=== PATIENT | female | born 1990 | race Hispanic/Latino ===

== ENCOUNTER 2024-12-04 16:49 | Emergency (ER) | payer SELFPAY ==
--- NOTE | ~2024-12-04 | XR_ITS ---
CHEST RADIOGRAPH, PA AND LATERAL CLINICAL HISTORY: chest pain . COMPARISON: 01/02/2024 TECHNIQUE: PA and lateral views of the chest. FINDINGS The cardiomediastinal silhouette is unremarkable. The lungs are clear. Visualized osseous structures and soft tissues are unremarkable. IMPRESSION: No focal infiltrate or effusion. Reviewed, dictated and finalized at location A. DING [employer] TEACHER
--- NOTE | 2024-12-04 17:05 | ECG_ITS ---
Test Date: 2024-12-04 17:30:32 Measurements Intervals [place] Rate: 95 P: 50 WV: 192 QRS: 17 QRSD: 88 T: 47 QT: 342 QTc: 431 Interpretive Statements SINUS RHYTHM POSSIBLE LEFT ATRIAL ENLARGEMENT BASELINE ARTIFACT- I, II, III, AVR, AVL, V1-V2 BORDERLINE ECG No previous ECG available for comparison Electronically Signed On 12-04-2024 19:00:27 HOG TRADER by Donato Alva D.O.
[2024-12-04 17:41] LABS: Basophils Absolute Auto 0.1 K/mm3 (0.0-0.1); Basophils Percent Auto 0.7 % (0.2-1.2); Eosinophils Absolute Auto 0.7 K/mm3 (0-0.3); Eosinophils Percent Auto 7.1 % (0-4.4); Hematocrit 38.6 % (37.0-47.0); Hemoglobin 12.7 g/dL (12.0-15.0); Immature Granulocyte Absolute 0.03 K/mm3 (0.00-0.031); Immature Granulocyte Percent A 0.3 % (0-0.5); Lymphocytes Absolute Auto 3.39 K/mm3 (0.9-3.2); Lymphocytes Percent Auto 34.8 % (18.3-44.2); Mean Corpuscular HGB Conc 32.9 g/dl (32-36); Mean Corpuscular Hemoglobin 28.9 pg (26-34); Mean Corpuscular Volume 87.7 fl (80-100); Mean Platelet Volume 10.3 fl (7.4-10.4); Monocytes Absolute Auto 0.7 K/mm3 (0.1-0.6); Monocytes Percent Auto 7.2 % (2.6-8.5); Neutrophils Absolute Auto 4.9 K/mm3 (1.3-6.7); Neutrophils Percent Auto 49.9 % (45.5-73.1); Platelet Count Result 490 k/mm3 (150-375); Red Cell Distribution Width 13.1 % (11.5-14.5); White Blood Count 9.8 K/mm3 (4.5-10.0)
[2024-12-04 17:51] LABS: Alanine Aminotransferase 17 U/L (6-35); Albumin Level 4.7 g/dL (3.5-5.1); Alkaline Phosphatase 67 U/L (38-126); Anion Gap 11 mmol/L (4-12); Aspartate Amino Transferase 30 U/L (14-36); Bilirubin,Total 0.4 mg/dL (0.2-1.3); Blood Urea Nitrogen 7 mg/dL (7-17); Calcium 9.1 mg/dL (8.4-10.2); Carbon Dioxide 25 mmol/L (22-30); Chloride 104 mmol/L (98-107); Estimated Glomerular Filt Rate > 60; Glucose 93 mg/dL (65-110); Lipase 237 U/L (23-300); Potassium 3.7 mmol/L (3.4-5.0); Sodium 140 mmol/L (137-145)
[2024-12-04 17:55] LABS: Prothrombin Time 13.5 Seconds (11.1-14.7)
--- NOTE | 2024-12-04 17:55 | ED_ITS ---
HPI - General Adult General Chief complaint: Chest Pain <Maura Thompson, HEATING AND AIR CONDITIONING MECHANIC - Last Filed: 12/04/24 18:03> Stated complaint: chest pain x1 hour <Maura Arrington February, HEATING AND AIR CONDITIONING MECHANIC - Last Filed: 12/04/24 18:03> Time Seen by Provider: 12/04/24 17:56 <Maura Arrington February, HEATING AND AIR CONDITIONING MECHANIC - Last Filed: 12/04/24 18:03> Focused HPI: Through the manager beverage Nidia Hummel is a 34 y/o female who presents with reports of having mid chest burning constantly since Sunday. She states that after she eats she starts to feel the burning and she vomits. She states she has vomited about 4-5 times since Sunday. She states that she takes omeprazole and malox but it only helps a little. She denies any chest pain or pain at this time but states that she feels increased air in her abdomen, Abdomen is soft/ bowel sounds present. GENERAL: Well-appearing, well-nourished, and in no acute distress. HEAD: Normocephalic, atraumatic. CHEST: Clear to auscultation. ?No respiratory distress. HEART: Regular rate and rhythm.? NEURO: ?Alert and oriented x3. Patient screened in triage and initial orders placed.? ?Additional care and disposition to be based upon?diagnostic testing and treatment. <Maura Arrington February, HEATING AND AIR CONDITIONING MECHANIC - Last Filed: 12/04/24 18:03> History of Present Illness HPI narrative: Agree with the HPI above, perform my own crane service technician directed physical exam and history taking. Patient has not tried any antiemetics such as Zofran, is able tolerate p.o. intake, has not seen a drug safety assistant and only takes the medications including Maalox and Protonix as needed instead of as scheduled on the prescription. <Smith Meyer MD - Last Filed: 12/04/24 22:36> Related Data Allergies/adverse reactions: Allergies Allergy/AdvReac Type Severity Reaction Status Date / Time No Known Allergies Allergy Verified 12/04/24 19:28 <Maura Thompson, HEATING AND AIR CONDITIONING MECHANIC - Last Filed: 12/04/24 18:03> Review of Systems 2 Review of Systems: As reviewed above in HPI <Smith Meyer MD - Last Filed: 12/04/24 22:36> Exam 2 Narrative: GENERAL: [Well-appearing, well-nourished, and in no acute distress.] HEAD: [Normocephalic, atraumatic.] EYES: [PERRLA and EOMI.] ENT: Nares clear, no rhinorrhea or epistaxis. Mucous membranes moist. NECK: Supple. CHEST: [Clear to auscultation. No respiratory distress.] HEART: [Regular rate and rhythm]. No murmur heard. [Normal peripheral pulses.] ABDOMEN: [Soft, nondistended], [nontender], [No rigidity or guarding] EXTREMITIES: Normal range of motion. [No edema.] SKIN: Warm, dry, no rash. NEURO: [No focal deficits]. Alert and oriented [x3.] PSYCH: [Normal mood and affect.] <Smith Meyer MD - Last Filed: 12/04/24 22:36> Medical Decision Making MDM Narrative Medical decision making narrative: 34-year-old otherwise healthy appearing female presenting to the emergency room with chief complaint of epigastric burning sensation in the back of her throat and sour taste in her mouth. She has a history of reflux and GERD and prescribed omeprazole and Maalox by her PCP recently. These medications have been helping her but she only takes them as needed instead of on a daily basis as she was instructed to. Patient has a benign physical exam, cardiac workup was ordered given her complaints of chest discomfort in the epigastrium. Will provide her fluid bolus and Zofran as well as famotidine. Suspicion presently is for symptomatic GERD, gastritis, esophagitis, less likely ACS or cholecystitis or cholelithiasis, pancreatitis. Workup shows no leukocytosis or anemia. Negative troponin x2, negative lipase. Electrolytes within normal limits. Normal kidney and liver function. Patient felt improved after symptomatic treatment here in the ED. EKG was nonischemic, chest x-ray without any concerns. Patient is safe and stable for discharge home with GI follow-up instructions. <Smith Meyer MD - Last Filed: 12/04/24 22:36> Medical Records Medical records reviewed: Yes I reviewed the external patient's medical records. <Smith Meyer MD - Last Filed: 12/04/24 22:36> Lab Data Lab results reviewed: Yes I reviewed the patient's lab results. <Smith Meyer MD - Last Filed: 12/04/24 22:36> Result diagrams: 12/04/24 17:35 12/04/24 17:35 <Maura Thompson APRN - Last Filed: 12/04/24 18:03> Labs: Lab Results 12/04/24 12/04/24 Range/Units 17:35 20:43 WBC 9.8 (4.5-10.0) K/mm3 RBC 4.40 (4.2-5.4) M/mm3 Hgb 12.7 (12.0-15.0) g/dL Hct 38.6 (37.0-47.0) % MCV 87.7 (80-100) fl MCH 28.9 (26-34) pg MCHC 32.9 (32-36) g/dl RDW 13.1 (11.5-14.5) % Plt Count 490 H (150-375) k/mm3 MPV 10.3 (7.4-10.4) fl Immature Gran % (Auto) 0.3 (0-0.5) % Neut % (Auto) 49.9 (45.5-73.1) % Lymph % (Auto) 34.8 (18.3-44.2) % Storey % (Auto) 7.2 (2.6-8.5) % Eos % (Auto) 7.1 H (0-4.4) % Baso % (Auto) 0.7 (0.2-1.2) % Lymph # (Auto) 3.39 H (0.9-3.2) K/mm3 Storey # (Auto) 0.7 H (0.1-0.6) K/mm3 Eos # (Auto) 0.7 H (0-0.3) K/mm3 Baso # (Auto) 0.1 (0.0-0.1) K/mm3 Abs Immat Gran (auto) 0.03 (0.00-0.031) K/mm3 Absolute Neuts (auto) 4.9 (1.3-6.7) K/mm3 Absolute Nucleated RBC 0.000 (0.0-0.012) K/mm3 Nucleated RBC % 0.0 (0.0-0.2) % PT 13.5 (11.1-14.7) Seconds INR 1.0 APTT 26.5 (22.3-36.8) Seconds Sodium 140 (137-145) mmol/L Potassium 3.7 (3.4-5.0) mmol/L Chloride 104 (98-107) mmol/L Carbon Dioxide 25 (22-30) mmol/L Anion Gap 11 (4-12) mmol/L BUN 7 (7-17) mg/dL Creatinine 0.41 L (0.7-1.0) mg/dL Estim Creat Clear Calc Not Reportable Estimated GFR > 60 (59 - ) Glucose 93 (65-110) mg/dL Calcium 9.1 (8.4-10.2) mg/dL Total Bilirubin 0.4 (0.2-1.3) mg/dL AST 30 (14-36) U/L ALT 17 (6-35) U/L Alkaline Phosphatase 67 (38-126) U/L Troponin I < 0.012 < 0.012 (0.000-0.034) ng/mL Total Protein 8.0 (6.3-8.2) g/dL Albumin 4.7 (3.5-5.1) g/dL Lipase 237 (23-300) U/L <Maura Thompson, HEATING AND AIR CONDITIONING MECHANIC - Last Filed: 12/04/24 18:03> Lab Results 12/04/24 12/04/24 Range/Units 17:35 20:43 WBC 9.8 (4.5-10.0) K/mm3 RBC 4.40 (4.2-5.4) M/mm3 Hgb 12.7 (12.0-15.0) g/dL Hct 38.6 (37.0-47.0) % MCV 87.7 (80-100) fl MCH 28.9 (26-34) pg MCHC 32.9 (32-36) g/dl RDW 13.1 (11.5-14.5) % Plt Count 490 H (150-375) k/mm3 MPV 10.3 (7.4-10.4) fl Immature Gran % (Auto) 0.3 (0-0.5) % Neut % (Auto) 49.9 (45.5-73.1) % Lymph % (Auto) 34.8 (18.3-44.2) % Storey % (Auto) 7.2 (2.6-8.5) % Eos % (Auto) 7.1 H (0-4.4) % Baso % (Auto) 0.7 (0.2-1.2) % Lymph # (Auto) 3.39 H (0.9-3.2) K/mm3 Storey # (Auto) 0.7 H (0.1-0.6) K/mm3 Eos # (Auto) 0.7 H (0-0.3) K/mm3 Baso # (Auto) 0.1 (0.0-0.1) K/mm3 Abs Immat Gran (auto) 0.03 (0.00-0.031) K/mm3 Absolute Neuts (auto) 4.9 (1.3-6.7) K/mm3 Absolute Nucleated RBC 0.000 (0.0-0.012) K/mm3 Nucleated RBC % 0.0 (0.0-0.2) % PT 13.5 (11.1-14.7) Seconds INR 1.0 APTT 26.5 (22.3-36.8) Seconds Sodium 140 (137-145) mmol/L Potassium 3.7 (3.4-5.0) mmol/L Chloride 104 (98-107) mmol/L Carbon Dioxide 25 (22-30) mmol/L Anion Gap 11 (4-12) mmol/L BUN 7 (7-17) mg/dL Creatinine 0.41 L (0.7-1.0) mg/dL Estim Creat Clear Calc Not Reportable Estimated GFR > 60 (59 - ) Glucose 93 (65-110) mg/dL Calcium 9.1 (8.4-10.2) mg/dL Total Bilirubin 0.4 (0.2-1.3) mg/dL AST 30 (14-36) U/L ALT 17 (6-35) U/L Alkaline Phosphatase 67 (38-126) U/L Troponin I < 0.012 < 0.012 (0.000-0.034) ng/mL Total Protein 8.0 (6.3-8.2) g/dL Albumin 4.7 (3.5-5.1) g/dL Lipase 237 (23-300) U/L <Smith Meyer MD - Last Filed: 12/04/24 22:36> Imaging Data Attestation: I personally reviewed and interpreted this imaging study as follows: < Smith Meyer MD - Last Filed: 12/04/24 22:36> My impression: Impressions Chest X-Ray 12/04/24 18:15 IMPRESSION: No focal infiltrate or effusion. <Smith Meyer MD - Last Filed: 12/04/24 22:36> ECG Data EKG #1: Attestation: I personally reviewed and interpreted this ECG as follows: < Smith Meyer MD - Last Filed: 12/04/24 22:36> ECG completion date: 12/04/24 <Smith Meyer MD - Last Filed: 12/04/24 22:36> ECG completion time: 20:36 <Smith Meyer MD - Last Filed: 12/04/24 22:36> Prior ECG tracings: available for review <Smith Meyer MD - Last Filed: 12/04/24 22:36> Interpretation: Sinus rhythm without any ST segment elevations, depressions or inversions. Regular rate rhythm and axis, normal QTC 446, QRS interval 91, SD interval 183. No interval change compared to prior, overall normal sinus rhythm. <Smith Meyer MD - Last Filed: 12/04/24 22:36> Discharge Plan Discharge Clinical Impression: Chest pain, Chest pain due to GERD, Acid reflux <Maura Thompson APRN - Last Filed: 12/04/24 18:03> Patient Disposition: Home, Self-Care <Maura Thompson APRN - Last Filed: 12/04/24 18:03> Condition: Stable <Maura Thompson APRN - Last Filed: 12/04/24 18:03> Instructions: Antibiotic Form, Chest Pain (ED), Diet for Stomach Ulcers and Gastritis (ED), GERD (Gastroesophageal Reflux Disease) (DC) <Maura Thompson APRN - Last Filed: 12/04/24 18:03> Additional Instructions: Follow-up with gastroenterology in your primary care provider. Return with any new or worsening concerns, take your Maalox every 6 hours for burning epigastric and discomfort, indigestion, take your Protonix every night and do not miss any doses. <Maura Thompson APRN - Last Filed: 12/04/24 18:03> Patient Language: Maltese <Maura Thompson HEATING AND AIR CONDITIONING MECHANIC - Last Filed: 12/04/24 18:03> Prescriptions: New ondansetron 4 mg tablet,disintegrating 4 mg PO Q8H PRN (Reason: nausea and vomiting) Qty: 10 0RF pantoprazole [Protonix] 40 mg tablet,delayed release (DR/EC) 40 mg PO HS 28 Days Qty: 28 0RF alum-mag hydroxide-simeth [Maalox Advanced] 200-200-20 mg/5 mL suspension 15 ml PO QID PRN (Reason: indigestion) Qty: 3000 0RF Rx Instructions: administer between meals and at bedtime <Maura Thompson APRN - Last Filed: 12/04/24 18:03> Follow-up/Referrals: PHYSICIAN NOT ON STAFF,NONSTAFF [Primary Care Provider] - <Maura Thompson APRN - Last Filed: 12/04/24 18:03> Time of Disposition: 22:36 <Maura Thompson APRN - Last Filed: 12/04/24 18:03> 22:36 <Smith Meyer MD - Last Filed: 12/04/24 22:36>
[2024-12-04 17:57] LABS: Partial Thromboplastin Time 26.5 Seconds (22.3-36.8)
[2024-12-04 18:03] LABS: Troponin I < 0.012 ng/mL (0.000-0.034)
--- NOTE | 2024-12-04 20:31 | ECG_ITS ---
Test Date: 2024-12-04 20:36:49 Measurements Intervals [place] Rate: 94 P: 51 ID: [id number] QRS: 16 QRSD: 91 T: 50 QT: 357 QTc: 446 Interpretive Statements SINUS RHYTHM POSSIBLE LEFT ATRIAL ENLARGEMENT BASELINE ARTIFACT- I, III, AVR, AVL BORDERLINE ECG Compared to ECG 12/04/2024 17:30:32 No significant changes Electronically Signed On 12-05-2024 06:53:03 MANAGER CCU by Donato Alva D.O.
[2024-12-04 21:12] LABS: Troponin I < 0.012 ng/mL (0.000-0.034)
[2024-12-04] MEDS: LACTATED RINGERS 1,000 ML 999 ML IV CONT (22:48)
[2024-12-04] MEDS: ONDANSETRON INJ 4 MG/2 ML VIAL IV PUSH (22:48)
--- OUTSIDE RECORDS SUMMARY | 2024-12-04 22:59 | XMS_ITS | Clinical Summary ---
Author Organization [facility] Address [address] [place] [id number] Care Team Providers Care Vice President Corporate Communications Name Role Phone No, Physician Primary Care Provider [phone] Allergies No known active allergies Medications ibuprofen (ADVIL,MOTRIN) 800 mg tablet Take 1 tablet (800 mg total) by mouth 3 (three) times a day 21 tablet 06/25/2024 Active bisoprolol (ZEBETA) 10 mg tablet Take 1 tablet (10 mg total) by mouth daily Active Encounters Date Type Department Care Team Description 12/01/2024 4:09 PM STEEL FITTER - 12/01/2024 10:24 PM STEEL FITTER Emergency [facility] Emergency Department [address] [place] [phone] Discharge Disposition: Left without being seen from Last 3 Months Medical History Medical History Date Comments Dissociated vertical deviation Social History Tobacco Use Types Packs/Day Years Used Date Smoking Tobacco: Never Assessed Personal Safety Answer Date Recorded Have you ever been in or are you currently in a harmful physical or emotional relationship or is someone making you feel afraid or unsafe? Denies 12/01/2024 Comments No Sex and Gender Information Value Date Recorded Sex Assigned at Not on file Legal Sex Female 9:33 PM CDT Gender Identity Not on file Sexual Orientation Not on file Obstetrics History Last Filed Vital Signs Vital Sign Reading Time Taken Comments Blood Pressure 139/75 12/01/2024 10:59 AM STEEL FITTER Pulse 95 12/01/2024 10:59 AM STEEL FITTER Temperature 37.7 C (99.9 F) 12/01/2024 10:59 AM STEEL FITTER Respiratory Rate 18 12/01/2024 10:59 AM STEEL FITTER Oxygen Saturation 99% 12/01/2024 10:59 AM STEEL FITTER Inhaled Oxygen Concentration - - Weight 97.5 kg (215 lb) 12/01/2024 10:59 AM STEEL FITTER Height 157.5 cm (5' 2 ) 12/01/2024 10:59 AM STEEL FITTER Body Mass Index 39.32 12/01/2024 10:59 AM STEEL FITTER Plan of Treatment Health Maintenance Due Date Last Done Comments Cervical Cancer Screening 1988 Depression Screening 1988 Hepatitis C Screening 1988 DTaP/Tdap/Td Vaccine (1 - Tdap) 1999 Varicella Vaccines (1 of 2 - 13+ 2-dose series) 2001 Hepatitis B Screening 2006 Regular Well Visit/Exam 18-64 2006 Influenza Vaccine (#1) 2024 HPV Vaccines Aged Out No longer eligi ble based on patient's age to complete this topic Pneumococcal vaccine <65 Aged Out No longer eligible based on patient's age to complete this topic Procedures Procedure Name Priority Date/Time Associated Diagnosis Comments POCT HCG, URINE Routine 12/01/2024 1:32 PM STEEL FITTER URINALYSIS AND REFLEX TO MICROSCOPIC AND CULTURE STAT 12/01/2024 1:26 PM STEEL FITTER from Last 3 Months Results * POCT hCG, urine (12/01/2024 1:32 PM STEEL FITTER) HCG, ur, POC Negative Negative Lot Number [id number] QC Backgroud Clear Acceptable QC Control Line Acceptable Urine 12/01/2024 1:32 PM STEEL FITTER Mattie Leiva MD POINT OF CARE TEST ORD ERABLES Final Result * Urinalysis reflex to microscopic and culture Urine (12/01/2024 1:26 PM STEEL FITTER) Color, ur Straw Yellow Comment:[facility] [address] [place] [address] Clarity, ur Clear Clear YON Comment:Testing performed by : [facility] [place] [address] Specific gravity, ur 1.005 1.003 - 1.030 [facility] Comment:Testing performed by : [facility], [address] [place] [address] pH, urine 6.5 CERNER CH Comment: Interpretive Data U rine pH is affected by diet, medications, systemic acid-base disturbances, and renal tubular function. pH may affect urinary stone formation. For example, urine pH below 6.0 may help reduce the tendency for calcium phosphate stones and pH greater than 6.0 may reduce the tendency for uric acid stone formation. Source: [facility] [employer] Current Interpretive Data was last revised on 2017 Testing performed by: [facility], [place] [address] Protein, ur ql Negative Negative CERNER CH Comment:Testing performed by : [facility], [place] [address] Glucose, ur ql Negative Negative [facility] CH Comment:Testing performed by : [facility], [place] [address] Ketones, ur Negative Negative [facility] CH Comment:Testing performed by : [facility], [place] [address] Bilirubin, ur Negative Negative [facility]ERN[facility] CH Comment:Testing performed by : [facility], [place] [address] Blood, ur Negative Negative [facility] CH Comment:Testing performed by : [facility], [address] [place] [address] Urobilinogen, ur <2.0 <2.0 mg/dL [facility] CH Comment:Testing performed by : [facility], [address] [place] [address] Nitrite, ur Negative Negative [facility] CH Comment:Testing performed by : [facility], [place] [address] Leukocyte esterase, ur Negative Negative [facility]ERNER CH Comment:Testing performed by : [facility], [place] [address] UA reflex comment Reflex conditions for microscopic UA and culture not met. [facility]ER CH Comment:Testing performed by : [facility], [place] [address] Urine 12/01/2024 1:26 PM STEEL FITTER 12/01/2024 1:38 PM STEEL FITTER Mattie Leiva MD LAB MICROBIOLOGY - GEN ERAL ORDERABLES Final Result [facility] [id number] Department [place] [address] from Last 3 Months Care Teams Vice President Corporate Communications Relationship Specialty Start Date End Date No, Physician PCP - General 06/25/24
--- OUTSIDE RECORDS SUMMARY | 2024-12-04 22:59 | XMS_ITS | Referral Summary ---
Author Organization [facility] Address [address] [place] [phone] Care Team Providers Care Furniture Designer Name Role Phone No, Physician Primary Care Provider [phone] Encounters Date Type Department Care Team Description 12/01/2024 4:09 PM GOLF BALL WINDER - 12/01/2024 10:24 PM GOLF BALL WINDER Emergency [facility] Emergency Department [address] [place] [phone] Discharge Disposition: Left without being seen from Last 3 Months Allergies No known active allergies Medications ibuprofen (ADVIL,MOTRIN) 800 mg tablet Take 1 tablet (800 mg total) by mouth 3 (three) times a day 21 tablet 06/25/2024 Active bisoprolol (ZEBETA) 10 mg tablet Take 1 tablet (10 mg total) by mouth daily Active Social History Tobacco Use Types Packs/Day Years [...] on file Sexual Orientation Not on file Last Filed Vital Signs Vital Sign Reading Time Taken Comments Blood Pressure 139/75 12/01/2024 10:59 AM GOLF BALL WINDER Pulse 95 12/01/2024 10:59 AM GOLF BALL WINDER Temperature 37.7 C (99.9 F) 12/01/2024 10:59 AM GOLF BALL WINDER Respiratory Rate 18 12/01/2024 10:59 AM GOLF BALL WINDER Oxygen Saturation 99% 12/01/2024 10:59 AM GOLF BALL WINDER Inhaled Oxygen Concentration - - Weight 97.5 kg (215 lb) 12/01/2024 10:59 AM GOLF BALL WINDER Height 157.5 cm (5' 2 ) 12/01/2024 10:59 AM GOLF BALL WINDER Body Mass Index 39.32 12/01/2024 10:59 AM GOLF BALL WINDER Plan of Treatment Not on file Procedures Procedure Name Priority Date/Time Associated Diagnosis Comments POCT HCG, URINE Routine 12/01/2024 1:32 PM GOLF BALL WINDER URINALYSIS AND REFLEX TO MICROSCOPIC AND CULTURE STAT 12/01/2024 1:26 PM GOLF BALL WINDER from Last 3 Months Results * POCT hCG, urine (12/01/2024 1:32 PM GOLF BALL WINDER) HCG, ur, POC Negative Negative Lot Number [id number] QC Backgroud Clear Acceptable QC Control Line Acceptable Urine 12/01/2024 1:32 PM GOLF BALL WINDER Mattie Leiva MD POINT OF CARE TEST ORD ERABLES Final Result * Urinalysis reflex to microscopic and culture Urine (12/01/2024 1:26 PM GOLF BALL WINDER) Color, ur Straw Yellow Comment:[facility] [place] [address] Clarity, ur Clear Clear [facility] Comment:Testing performed by : [facility] [address], [place] [address] Specific gravity, ur 1.005 1.003 - 1.030 [facility] Comment:Testing performed by : [facility] [address] [place] [address] pH, urine 6.5 [facility] Comment: Interpretive Data U rine pH is affected by diet, medications, systemic acid-base disturbances, and renal tubular function. pH may affect urinary stone formation. For example, urine pH below 6.0 may help reduce the tendency for calcium phosphate stones and pH greater than 6.0 may reduce the tendency for uric acid stone formation. Source: [facility] [employer] Current Interpretive Data was last revised on 2017 Testing performed by: [facility] [address], [place] [address] Protein, ur ql Negative Negative [facility] Comment:Testing performed by : [facility], [address], [place] [address] Glucose, ur ql Negative Negative [facility] Comment:Testing performed by : [facility], [address] [place] [address] Ketones, ur Negative Negative [facility] Comment:Testing performed by : [facility], [place] [address] Bilirubin, ur Negative Negative [facility] Comment:Testing performed by : [facility], [address] [place] [address] Blood, ur Negative Negative [facility] Comment:Testing performed by : [facility], [facility] [address], [place] [address] Urobilinogen, ur <2.0 <2.0 mg/dL [facility] Comment:Testing performed by : [facility], [place] [address] Nitrite, ur Negative Negative [facility] Comment:Testing performed by : [facility], [place] [address] Leukocyte esterase, ur Negative Negative [facility] CH Comment:Testing performed by : [facility], [facility] [place] [address] UA reflex comment Reflex conditions for microscopic UA and culture not met. [facility] CH Comment:Testing performed by : [facility], [facility] [place] [address] Urine 12/01/2024 1:26 PM GOLF BALL WINDER 12/01/2024 1:38 PM GOLF BALL WINDER Mattie Leiva MD LAB MICROBIOLOGY - GEN ERAL ORDERABLES Final Result [facility] [id number] Department [place] [address] from Last 3 Months Care Teams Furniture Designer Relationship Specialty Start Date End Date No, Physician PCP - General 06/25/24
--- OUTSIDE RECORDS SUMMARY | 2024-12-04 22:59 | XMS_ITS | Clinical Summary ---
Author Organization [facility] Address [address] [place] [id number] Care Team Providers Care Electronic Specialist Name Role Phone Lorrie Vasquez PA-C Primary Care Provider [phone] Allergies No known active allergies Medications cetirizine (ZYRTEC) 10 MG tablet Take 1 tablet (10 mg total) by mouth daily. 30 tablet 09/07/2024 Active Encounters Date Type Department Care Team Description 09/07/2024 12:35 PM NEW CAR SALES MANAGER - 09/07/2024 1:52 PM NEW CAR SALES MANAGER Emergency [facility] [place] [address] Amparo Pack, SHANK THREADER Headache Discharge Disposition: Home or Self Care (Routine Discharge) 09/07/2024 Travel from Last 3 Months Social History Tobacco Use Types Packs/Day Years Used Date Smoking Tobacco: Never Smokeless Tobacco: Never Tobacco Cessation:Counseling Given: Not Answered Alcohol Use Standard Drinks/Week Comments Never 0 (1 standard drink = 0.6 oz pur e alcohol) Comments No Sex and Gender Information Value Date Recorded Sex Assigned at Not on file Legal Sex Female 7:05 PM CDT Gender Identity Not on file Sexual Orientation Not on file Last Filed Vital Signs Vital Sign Reading Time Taken Comments Blood Pressure 161/88 09/07/2024 12:24 PM NEW CAR SALES MANAGER Pulse 70 09/07/2024 12:24 PM NEW CAR SALES MANAGER Temperature 36.1 C (97 F) 09/07/2024 12:24 PM NEW CAR SALES MANAGER Respiratory Rate 18 09/07/2024 12:24 PM NEW CAR SALES MANAGER Oxygen Saturation 97% 09/07/2024 12:24 PM NEW CAR SALES MANAGER Inhaled Oxygen Concentration - - Weight 98 kg (216 lb 0.8 oz) 09/07/2024 12:37 PM NEW CAR SALES MANAGER Height - - Body Mass Index - - Plan of Treatment Health Maintenance Due Date Last Done Comments Cervical Cancer Screening Pa p Smear (Age 30 to 64) Every 3 Years 1988 Annual Physical 1991 Hepatitis C 2006 DTaP, Tdap and Td Vaccines ( 1 - Tdap) 2007 Hepatitis B Vaccines (1 of 3 - 19+ 3-dose series) 2007 Cervical Cancer Screening Pa p with HPV Testing (Age 30 to 64) Every 5 Years 2018 Cervical Cancer Screening with HPV 2018 COVID-19 Vaccine ( - 2023-2 5 season) 2024 Influenza Adult (#1) 2024 HPV Vaccines Aged Out No longer eligi ble based on patient's age to complete this topic Meningococcal B Vaccine Aged Out No l onger eligible based on patient's age to complete this topic Meningococcal Vaccine Aged Out No abdulaziz charmaine eligible based on patient's age to complete this topic Pneumococcal Vaccine: Pediat rics (0 to 5 Years) and At-Risk Patients (6 to 64 Years) Aged Out No longer eligible b ased on patient's age to complete this topic RSV Immunizations Under 20 Months Aged Out No longer eligible based on patient's age to complete this topic Care Teams Electronic Specialist Relationship Specialty Start Date End Date Lorrie Vasquez PA-C [address] [place] [address] PCP - General NURSE PRACTITIONER 07/17/24
[2024-12-04 23:45] VITALS: O2SAT 99
[2024-12-05 00:01] VITALS: BP 138/84; PULSE 92; RESP 15; O2SAT 98
== END 2024-12-05 00:03 | disposition home or self-care (01) ==
LOC: ANHED 22:57
PROVIDERS: Emergency Medicine; Emergency Provider Student in an Organized Health Care Education/Training Program
DX: K21.9 Gastro-esophageal reflux disease without esophagitis (principal); R94.31 Abnormal electrocardiogram [ECG] [EKG]
CPT/HCPCS: 36415; 71046; 80053; 83690; 84484; 85025; 85610; 85730; 93005; 96361; 96374; 99284; A9270; J2405; J2470; J7120